=== PATIENT | female | born 1995 | race Caucasian/White ===

== ENCOUNTER 2021-10-03 19:32 | Emergency (ER) | payer OTHER ==
[2021-10-03 19:47] VITALS: BP 125/81; PULSE 73; RESP 18; TEMP 98.5; BMI 34.5
== END 2021-10-03 21:27 | disposition home or self-care (01) ==
LOC: JERFT 19:32
DX: M54.12 Radiculopathy, cervical region (principal)
CPT/HCPCS: 73030-TC-RT-FY; 99283-25

== ENCOUNTER 2022-07-02 12:35 | Emergency (ER) | payer OTHER ==
[2022-07-02 12:42] VITALS: BP 126/57; PULSE 74; RESP 16; TEMP 98.9; BMI 30.1
[2022-07-02] MEDS ORDERED: ACETAMINOPHEN 1000 MG/100 ML BAG IVPB ONE (13:12)
[2022-07-02] MEDS ORDERED: SODIUM CHLORIDE 0.9% 500 ML INFUS.BAG IV ONE (13:12)
[2022-07-02] MEDS ORDERED: ACETAMINOPHEN INJECTION 100 ML IVPB ONE (13:18)
[2022-07-02 14:27] LABS: BASO % 0.3 % (0-2.0); EOS % 0.5 % (0-4.5); HEMATOCRIT 34.3 % (32.4-45.2); HEMOGLOBIN 11.4 GM/dL (10.7-15.3); LYMPH % 12.9 % (8-40); MCH 25.4 pg (25.7-33.7); MCHC 33.1 g/dl (32.0-36.0); MEAN CELL VOLUME 76.6 fl (80-96); MEAN PLT VOLUME 8.2 fl (7.5-11.1); MONO % 4.2 % (3.8-10.2); NEUT % 82.1 % (42.8-82.8); PLATELET COUNT 319 10^3/uL (134-434); RBC 4.48 M/mm3 (3.60-5.2); RDW 18.3 % (11.6-15.6); WHITE BLOOD COUNT 8.2 K/mm3 (4.0-10.0)
[2022-07-02 14:46] LABS: POTASSIUM 4.2 mmol/L (3.5-5.1)
[2022-07-02 14:49] LABS: ALBUMIN 3.9 g/dl (3.4-5.0); BLOOD UREA NITROGEN 11.5 mg/dL (7-18)
[2022-07-02 14:52] LABS: CREATININE 0.5 mg/dL (0.55-1.3)
[2022-07-02 14:53] LABS: BILIRUBIN,TOTAL 0.3 mg/dL (0.2-1); TOT PROT 7.1 g/dl (6.4-8.2)
== END 2022-07-02 15:23 | disposition home or self-care (01) ==
LOC: JERFT 12:35
PROC: 3E033NZ Introduction of Analgesics, Hypnotics, Sedatives into Peripheral Vein, Percutaneous Approach (ICD-10-PCS; principal; 2022-07-02)
DX: R42 Dizziness and giddiness (principal)
CPT/HCPCS: 36415; 80053; 84484; 84703; 85025; 93005; 93010; 96374; 99284-25

== ENCOUNTER 2023-01-21 19:30 | Emergency (ER) | payer OTHER ==
[2023-01-21 19:39] VITALS: BMI 30.1
[2023-01-21 21:16] LABS: BASO % 0.4 % (0-2.0); EOS % 2.3 % (0-4.5); HEMATOCRIT 35.1 % (32.4-45.2); LYMPH % 37.1 % (8-40); MCH 27.3 pg (25.7-33.7); MCHC 34.1 g/dl (32.0-36.0); MEAN CELL VOLUME 80.1 fl (80-96); MEAN PLT VOLUME 7.5 fl (7.5-11.1); MONO % 5.5 % (3.8-10.2); NEUT % 54.7 % (42.8-82.8); PLATELET COUNT 363 10^3/uL (134-434); RBC 4.38 M/mm3 (3.60-5.2); RDW 13.7 % (11.6-15.6); WHITE BLOOD COUNT 6.9 K/mm3 (4.0-10.0)
[2023-01-21 21:30] LABS: EPI CELLS 1 /uL (0-25.1); HYALINE CASTS 0 /uL (0-3.1); PH,URINE 5.5 (5.0-8.0); URINE APPEARANCE CLEAR; URINE BACTERIA 1 /uL (0-1359); URINE BILIRUBIN NEGATIVE (NEGATIVE); URINE COLOR YELLOW; URINE GLUCOSE (UA) NEGATIVE (NEGATIVE); URINE KETONE NEGATIVE (NEGATIVE); URINE LEUK ESTERASE NEGATIVE (NEGATIVE); URINE NITRITE NEGATIVE (NEGATIVE); URINE PROTEIN NEGATIVE (NEGATIVE); URINE RBC 6 /uL (0-23.9); URINE UROBILINOGEN 0.2 mg/dL (0.2-1.0); URINE WBC 3 /uL (0-25.8)
[2023-01-21 21:47] LABS: BLOOD UREA NITROGEN 6.8 mg/dL (7-18); CALCIUM 8.7 mg/dL (8.5-10.1)
[2023-01-21 21:48] LABS: ALBUMIN 3.8 g/dl (3.4-5.0)
[2023-01-21 21:51] LABS: CREATININE 0.6 mg/dL (0.55-1.3)
[2023-01-21 21:52] LABS: BILIRUBIN,TOTAL 0.2 mg/dL (0.2-1); TOT PROT 7.1 g/dl (6.4-8.2)
[2023-01-21 22:49] VITALS: BP 121/72; PULSE 66; RESP 20; TEMP 99.4
== END 2023-01-21 23:22 | disposition home or self-care (01) ==
LOC: JER 19:30
DX: O20.9 Hemorrhage in early pregnancy, unspecified (principal); Z3A.01 Less than 8 weeks gestation of pregnancy
CPT/HCPCS: 36415; 76817-TC; 80053; 81003; 84702; 85025; 86850; 86900; 86901; 87086; 99284-25

== ENCOUNTER 2023-01-22 13:51 | Emergency (ER) | payer OTHER ==
[2023-01-22 14:05] VITALS: BP 110/68; PULSE 68; RESP 18; TEMP 98.5; BMI 30.1
[2023-01-22 14:53] LABS: BASO % 0.6 % (0-2.0); EOS % 1.8 % (0-4.5); HEMATOCRIT 34.6 % (32.4-45.2); HEMOGLOBIN 11.5 GM/dL (10.7-15.3); MCH 27.3 pg (25.7-33.7); MCHC 33.3 g/dl (32.0-36.0); MEAN PLT VOLUME 7.8 fl (7.5-11.1); MONO % 6.5 % (3.8-10.2); NEUT % 55.1 % (42.8-82.8); PLATELET COUNT 325 10^3/uL (134-434); RBC 4.22 M/mm3 (3.60-5.2); WHITE BLOOD COUNT 6.7 K/mm3 (4.0-10.0)
== END 2023-01-22 15:41 | disposition home or self-care (01) ==
LOC: JER 13:51
DX: O03.9 Complete or unspecified spontaneous abortion without complication (principal)
CPT/HCPCS: 36415; 84702; 85025; 99283-25

== ENCOUNTER 2023-10-05 08:38 | Emergency (ER) | payer OTHER ==
[2023-10-05 08:46] VITALS: BMI 31.5
[2023-10-05] MEDS ORDERED: ACETAMINOPHEN INJECTION 100 ML IVPB ONE (09:39)
[2023-10-05] MEDS: ACETAMINOPHEN 1000 MG/100 ML BAG IVPB ONE (09:49)
[2023-10-05] MEDS: SODIUM CHLORIDE 0.9% 500 ML INFUS.BAG IV ONE (09:49)
[2023-10-05] MEDS ORDERED: ONDANSETRON 4 MG/2 ML VIAL ONE (09:57)
[2023-10-05 09:58] LABS: EPI CELLS 6 /uL (0-25.1); HYALINE CASTS 1 /uL (0-3.1); PH,URINE 5.5 (5.0-8.0); URINE APPEARANCE CLEAR; URINE BACTERIA 4 /uL (0-1359); URINE BILIRUBIN NEGATIVE (NEGATIVE); URINE COLOR YELLOW; URINE GLUCOSE (UA) NEGATIVE (NEGATIVE); URINE KETONE NEGATIVE (NEGATIVE); URINE LEUK ESTERASE NEGATIVE (NEGATIVE); URINE NITRITE NEGATIVE (NEGATIVE); URINE PROTEIN NEGATIVE (NEGATIVE); URINE RBC 25 /uL (0-23.9); URINE UROBILINOGEN 0.2 mg/dL (0.2-1.0); URINE WBC 17 /uL (0-25.8)
[2023-10-05 09:59] LABS: BASO % 0.3 % (0-2.0); EOS % 1.6 % (0-4.5); HEMATOCRIT 34.8 % (32.4-45.2); HEMOGLOBIN 11.4 GM/dL (10.7-15.3); MCHC 32.8 g/dl (32.0-36.0); MEAN CELL VOLUME 73.4 fl (80-96); MEAN PLT VOLUME 7.6 fl (7.5-11.1); MONO % 5.6 % (3.8-10.2); NEUT % 67.5 % (42.8-82.8); PLATELET COUNT 314 10^3/uL (134-434); RBC 4.74 M/mm3 (3.60-5.2); RDW 15.8 % (11.6-15.6); WHITE BLOOD COUNT 5.9 K/mm3 (4.0-10.0)
[2023-10-05] MEDS: ONDANSETRON 4 MG/2 ML VIAL IVPUSH ONE (10:02)
[2023-10-05 10:06] LABS: HCG,QUALITATIVE URINE Negative
[2023-10-05 10:09] LABS: POTASSIUM 4.2 mmol/L (3.5-5.1)
[2023-10-05 10:11] LABS: ALBUMIN 3.8 g/dl (3.4-5.0); BLOOD UREA NITROGEN 10.7 mg/dL (7-18); CALCIUM 9.3 mg/dL (8.5-10.1)
[2023-10-05 10:14] LABS: CREATININE 0.7 mg/dL (0.55-1.3)
[2023-10-05 10:17] LABS: BILIRUBIN,TOTAL 0.4 mg/dL (0.2-1); TOT PROT 7.3 g/dl (6.4-8.2)
[2023-10-05] MEDS ORDERED: KETOROLAC TROMETHAMINE 15 MG/ML VIAL ONE (11:56)
[2023-10-05] MEDS: KETOROLAC TROMETHAMINE 15 MG/ML VIAL IVPUSH ONE (12:00)
[2023-10-05 13:11] VITALS: BP 105/52; PULSE 76; RESP 20; TEMP 99.1
== END 2023-10-05 13:11 | disposition home or self-care (01) ==
LOC: JER 08:38
PROC: 3E033NZ Introduction of Analgesics, Hypnotics, Sedatives into Peripheral Vein, Percutaneous Approach (ICD-10-PCS; principal; 2023-10-05)
PROC: 3E0333Z Introduction of Anti-inflammatory into Peripheral Vein, Percutaneous Approach (ICD-10-PCS; 2023-10-05)
PROC: 3E033GC Introduction of Other Therapeutic Substance into Peripheral Vein, Percutaneous Approach (ICD-10-PCS; 2023-10-05)
DX: R10.84 Generalized abdominal pain (principal); R11.0 Nausea; R68.83 Chills (without fever)
CPT/HCPCS: 36415; 76830-TC; 80053; 81003; 84703; 85025; 87086; 99284-25; J0131

== ENCOUNTER 2024-09-03 21:20 | Emergency (ER) | payer OTHER ==
[2024-09-03 21:28] VITALS: BP 110/62; PULSE 69; RESP 18; TEMP 99.2; BMI 26.7
[2024-09-03] MEDS ORDERED: ACETAMINOPHEN INJECTION 100 ML ONE (22:58)
[2024-09-03 23:00] LABS: ABSOLUTE IMMATURE GRANULOCYTES 0.01 x10^3/uL (0.0-0.031); BASOPHILS # 0.02 x10^3/uL (0.01-0.08); EOSINOPHIL % 1.1 % (0.7-5.8); EOSINOPHILS # 0.07 x10^3/uL (0.04-0.36); MCHC 29.6 g/dl (32.2-35.5); MEAN CELL VOLUME 69.3 fl (79.4-94.8); MEAN PLT VOLUME 10.7 fl (9.4-12.3); MONOCYTE # 0.37 x10^3/uL (0.24-0.86); MONOCYTE % 5.7 % (4.7-12.5); RDW 18.2 % (12.1-16.5)
[2024-09-03 23:13] LABS: INR 1.34 (0.83-1.09); PROTHROMBIN TIME (PATIENT) 14.7 SEC (9.7-13.0)
[2024-09-03 23:14] LABS: ACTIVATED PTT 33.8 SECONDS (25.2-36.5)
[2024-09-03] MEDS: ACETAMINOPHEN 1000 MG/100 ML BAG IVPB ONE (23:35)
[2024-09-03] MEDS: SODIUM CHLORIDE 0.9% 500 ML INFUS.BAG IV ONE (23:36)
[2024-09-03 23:50] LABS: CO2 26.0 mmol/L (21-32); GLUCOSE,RANDOM 94.0 mg/dL (74-106)
[2024-09-03 23:53] LABS: CREATININE 0.5 mg/dL (0.55-1.3); SGOT/AST 247.0 U/L (15-37); SGPT/ALT 169.0 U/L (13-61)
[2024-09-03 23:55] LABS: TOT PROT 6.7 g/dl (6.4-8.2)
[2024-09-03 23:56] LABS: ALK PHOS 312.0 U/L (45-117)
[2024-09-04 00:11] LABS: HCV DIAGNOSTIC IN-HOUSE W/RFLX NON-REACTIVE (NONREACTIVE)
[2024-09-04 00:12] LABS: HIV INTERPRETATION NEGATIVE (NEGATIVE)
== END 2024-09-04 00:15 | disposition home or self-care (01) ==
LOC: JER 21:20
PROC: 3E033NZ Introduction of Analgesics, Hypnotics, Sedatives into Peripheral Vein, Percutaneous Approach (ICD-10-PCS; principal; 2024-09-03)
DX: K80.70 Calculus of gallbladder and bile duct without cholecystitis without obstruction (principal); R10.11 Right upper quadrant pain
CPT/HCPCS: 36415; 76705-TC; 80053; 85025; 85610; 85730; 86803; 86850; 86900; 86901; 87389; 99285-25